=== PATIENT | female | born 1995 | race Caucasian/White ===

== ENCOUNTER 2024-07-16 13:18 | Emergency (ER) | payer MEDICAID ==
[~2024-07-16] VITALS: Ht 160 cm; Wt 52.6 kg
[2024-07-16 13:26] VITALS: BP 100/60; RESP 16; TEMP 98.5; O2SAT 100
[2024-07-16 13:28] VITALS: PULSE 111; O2SAT 96
[2024-07-16] MEDS ORDERED: DEXAMETHASONE 4MG/ML 1ML VIAL IM ONE (13:45)
[2024-07-16] MEDS ORDERED: P20 MT (14:06)
[2024-07-16] MEDS ORDERED: EPIN0.3P3 IM (14:06)
[2024-07-16] MEDS: DEXAMETHASONE 4MG/ML 1ML VIAL IM NR (15:25)
== END 2024-07-16 15:27 | disposition home or self-care (01) ==
LOC: ER 13:28
DX: T78.1XXA Other adverse food reactions, not elsewhere classified, initial encounter (principal); Z90.49 Acquired absence of other specified parts of digestive tract; Z88.8 Allergy status to other drugs, medicaments and biological substances; X58.XXXA Exposure to other specified factors, initial encounter
CPT/HCPCS: 99283; 96372; J1100